=== PATIENT | female | born 1950 | race African-American/Black ===

== ENCOUNTER 2017-02-03 07:18 | Outpatient (CLI) | payer MEDICARE ==
[2017-02-03 08:34] LABS: Anion Gap 14 mmol/L (10-20); BUN (Urea Nitrogen) 10 mg/dL (9.8-20.1); Calc. Creatinine Clearance 0 mL/min (70-130); Calcium 9.2 mg/dL (7.8-10.44); Carbon Dioxide 24 mmol/L (23-31); Chloride 108 mmol/L (98-107); Estimated GFR-MDRD 89; Glucose 133 mg/dL (80-115); Potassium 3.7 mmol/L (3.5-5.1); Sodium 142 mmol/L (136-145)
[2017-02-03 08:36] LABS: Hemoglobin A1c 6.3 % (4.0-6.0)
== END 2017-02-03 07:19 ==
LOC: MADLABBHPM 07:18
PROVIDERS: ATTEND Family Medicine
DX: E11.9 Type 2 diabetes mellitus without complications (principal)
CPT/HCPCS: 36415; 80048; 83036

== ENCOUNTER 2017-06-11 07:03 | Outpatient (CLI) | payer MEDICARE ==
[2017-06-11 07:52] LABS: ALT (SGPT) 11 U/L (8-55); AST (SGOT) 13 U/L (5-34); Albumin 3.9 g/dL (3.4-4.8); Alkaline Phosphatase 87 U/L (40-150); Anion Gap 14 mmol/L (10-20); BUN (Urea Nitrogen) 14 mg/dL (9.8-20.1); Bilirubin, Total 0.4 mg/dL (0.2-1.2); Calc. Creatinine Clearance 0 mL/min (70-130); Carbon Dioxide 23 mmol/L (23-31); Cardiac Risk 4.3 (Less than 4.5); Chloride 110 mmol/L (98-107); Cholesterol 152 mg/dl (< 200 Desired); Estimated GFR-MDRD Greater than 90; Globulin 3.1 g/dL (2.4-3.5); Glucose 118 mg/dL (80-115); HDL Cholesterol 35 mg/dL (>60 Neg Risk); LDL Cholesterol, Calculated 97 mg/dL; Potassium 3.5 mmol/L (3.5-5.1); Sodium 143 mmol/L (136-145); Triglycerides 101 mg/dL (Less than 150)
[2017-06-11 07:55] LABS: Hemoglobin A1c 6.2 % (4.0-6.0)
[2017-06-11 08:08] LABS: Free T4 (Free Thyroxine) 0.99 ng/dL (0.70-1.48); Thyroid Stimulating Hormone 2.1791 uIU/mL (0.35-4.94)
[2017-06-11 17:35] LABS: Creatinine, Urine 92.46 mg/dL (47-110); Microalbumin Urine Less than 1.0 mg/dL (0.5-50.0); Microalbumin/Creat Ratio 10.8 mg/g (Less than 30)
== END 2017-06-11 07:04 | disposition home or self-care (01) ==
LOC: MADLABBHPM 07:03
PROVIDERS: ATTEND Family Medicine
DX: E11.9 Type 2 diabetes mellitus without complications (principal)
CPT/HCPCS: 36415; 80053; 80061; 82043; 83036; 84439; 84443

== ENCOUNTER 2021-02-01 08:07 | Outpatient (CLI) | payer MEDICARE ==
[2021-02-01 09:12] LABS: ALT (SGPT) 9 U/L (8-55); AST (SGOT) 14 U/L (5-34); Albumin 4.3 g/dL (3.4-4.8); Alkaline Phosphatase 87 U/L (40-110); Anion Gap 12 mmol/L (10-20); BUN (Urea Nitrogen) 12 mg/dL (9.8-20.1); Bilirubin, Total 0.3 mg/dL (0.2-1.2); Calc. Creatinine Clearance 0 mL/min (70-130); Calcium 9.5 mg/dL (7.8-10.44); Carbon Dioxide 28 mmol/L (23-31); Chloride 108 mmol/L (98-107); Cholesterol 126 mg/dl (< 200 Desired); Globulin 3.2 g/dL (2.4-3.5); Glucose 117 mg/dL (80-115); HDL Cholesterol 42 mg/dL (>60 Neg Risk); LDL Cholesterol, Calculated 68 mg/dL; Potassium 3.7 mmol/L (3.5-5.1); Protein, Total 7.5 g/dL (5.8-8.1); Sodium 144 mmol/L (136-145); Triglycerides 82 mg/dL (Less than 150)
[2021-02-01 09:27] LABS: Thyroid Stimulating Hormone 2.4647 uIU/mL (0.35-4.94)
[2021-02-01 15:02] LABS: Hemoglobin A1c 6.3 % (4.0-6.0)
[2021-02-01 15:10] LABS: Creatinine, Urine 94.51 mg/dL (47-110); Microalbumin Urine Less than 1.0 mg/dL (0.5-50.0)
[2021-02-01 15:23] LABS: Free T4 (Free Thyroxine) 1.02 ng/dL (0.70-1.48)
== END 2021-02-01 08:08 | disposition home or self-care (01) ==
LOC: MADLAB 08:07
PROVIDERS: ATTEND Family Medicine
DX: E78.5 Hyperlipidemia, unspecified (principal); E11.9 Type 2 diabetes mellitus without complications
CPT/HCPCS: 36415; 80053; 80061; 82043; 83036; 84439; 84443

== ENCOUNTER 2025-08-02 13:37 | Emergency (ER) | payer MEDICARE ==
[2025-08-02 14:25] LABS: #Basophils 0.0 thou/uL (0.0-0.2); #Eosinophils 0.0 thou/uL (0.0-0.7); #Lymphocytes 0.8 thou/uL (1.20-3.40); #Monocytes 0.3 thou/uL (0.11-0.59); #Neutrophils 8.2 thou/uL (1.40-6.50); %Basophils 0.3 % (0.0-1.0); %Eosinophils 0.1 % (0.0-10.0); %Lymphocytes 8.9 % (21.0-51.0); %Monocytes 3.5 % (0.0-10.0); %Neutrophils 87.2 % (42.0-75.0); Hematocrit 30.2 % (36.0-47.0); Hemoglobin 9.3 g/dL (12.0-16.0); Mean Corpuscular Hemoglobin 31.9 pg (27.0-31.0); Mean Corpuscular Volume 103.7 fl (78.0-98.0); Platelet Count 222 10x3/uL (130-400); Red Blood Cell (RBC) Count 2.92 mill/uL (4.20-5.40); White Blood Cell (WBC) Count 9.4 10x3/uL (4.8-10.8)
[2025-08-02 14:39] LABS: ALT (SGPT) 22 U/L (Less than 34); AST (SGOT) 50 U/L (11-34); Albumin 2.7 g/dL (3.1-4.5); Alkaline Phosphatase 93 U/L (40-110); Anion Gap 28 mmol/L (10-20); BUN (Urea Nitrogen) 65 mg/dL (9.8-20.1); Bilirubin, Total 1.9 mg/dL (0.3-1.2); Calc. Creatinine Clearance 0 mL/min (70-130); Calcium 8.7 mg/dL (7.8-10.44); Carbon Dioxide 19 mmol/L (23-31); Chloride 108 mmol/L (98-107); Globulin 3.3 g/dL (2.4-3.5); Glucose 172 mg/dL (83-110); Potassium 3.1 mmol/L (3.5-5.1)
[2025-08-02 14:41] LABS: Sodium 152 mmol/L (136-145)
[2025-08-02 15:40] LABS: Glucose, Urine (Dipstick) Negative (Negative); Leukocyte Negative (Negative); Protein, Urine (Dipstick) 100 mg/dL (Neg-Trace); Specific Gravity, Urine 1.015 (1.005-1.030)
[2025-08-02 15:49] LABS: Bacteria/HPF Rare-Few HPF (None Seen); CAUTI Indications for Culture Alt mental st,lethar; Mucous/LPF Rare LPF (<2+); RBC/HPF None Seen HPF (0-3); WBC/HPF None Seen HPF (0-3)
[2025-08-02 15:50] LABS: Urine Culture Reflex No No
[2025-08-02] MEDS ORDERED: Dextrose 5 %-0.45 % NaCl 1000 ml Bag ONE (16:56)
[2025-08-02 18:42] LABS: Anion Gap 28 mmol/L (10-20); BUN (Urea Nitrogen) 62 mg/dL (9.8-20.1); Calc. Creatinine Clearance 0 mL/min (70-130); Carbon Dioxide 17 mmol/L (23-31); Chloride 112 mmol/L (98-107); Potassium 3.2 mmol/L (3.5-5.1)
[2025-08-02 18:43] LABS: Calcium 8.1 mg/dL (7.8-10.44); Glucose 126 mg/dL (83-110)
[2025-08-02 18:44] LABS: Sodium 154 mmol/L (136-145)
[2025-08-02] MEDS ORDERED: NOREPINEPHRINE 8 MG/250 ML-D5W 250 ML ONE (19:47)
== END 2025-08-02 20:55 | disposition short-term general hospital (02) ==
LOC: MADERS 13:37
DX: J18.9 Pneumonia, unspecified organism (principal); R62.7 Adult failure to thrive; E86.0 Dehydration; E86.1 Hypovolemia; E87.20 Acidosis, unspecified; I10 Essential (primary) hypertension; E11.9 Type 2 diabetes mellitus without complications
CPT/HCPCS: 71045; 80048; 80053; 81001; 83605; 85025; 87040; 93005; J2543; J7030; J7042; 36415; 96361; 96365; 96375